=== PATIENT | female | born 1965 | race Caucasian/White ===

== ENCOUNTER 2017-06-15 15:19 | Emergency (ER) | payer OTHER ==
--- NOTE | 2017-06-15 15:59 | EDPHY ---
H & P Time Seen by Provider: 06/15/17 15:58 HPI/ROS: Chief complaint. Abdominal pain HPI. 52-year-old female with fever and chills that began yesterday. She has mid abdominal cramping that is worse on the right. She has no upper respiratory symptoms or sore throat. Denies chest discomfort, shortness of breath, cough. Denies urinary symptoms. No history of previous abdominal surgery or symptoms. Nausea but no vomiting or diarrhea ROS Constitutional. Fever and chills Eyes. no problems with vision ENT. no sore throat, no nasal drainage Cardiovascular. no chest pain Respiratory. no shortness of breath, no cough Abdominal. Right-sided abdominal pain . no problems urinating MS. no calf pain/swelling, no neck/back pain, no joint pain Skin. no rash Lymph. no swollen glands Neuro. no headache, no dizziness, no difficulty walking or with speech Past Medical/Surgical History: Healthy Social History: , nonsmoker, no alcohol Smoking Status: Never smoked Physical Exam: General Appearance: Alert pleasant well-developed female mild distress vital signs significant for heart rate 115 Eyes: Pupils equal and round no pallor or injection. ENT, Mouth: Mucous membranes are moist. Respiratory: There are no retractions, lungs are clear to auscultation. Cardiovascular: Regular rate and rhythm. Gastrointestinal: Abdomen is soft with tenderness in the right mid quadrant. Normal bowel sounds. No masses Neurological: Awake and alert, sensory and motor exams grossly normal. Skin: Warm and dry, no rashes. Musculoskeletal: Neck is supple nontender. Extremities symmetrical, full range of motion. Psychiatric: Patient is oriented X 3, there is no agitation. Constitutional: Initial Vital Signs Temperature (C) 36.9 C 06/15/17 15:23 Heart Rate 115 H 06/15/17 15:23 Respiratory Rate 16 06/15/17 15:23 Blood Pressure 140/90 H 06/15/17 15:23 O2 Sat (%) 96 06/15/17 15:23 O2 Delivery Mode Room Air Allergies/Adverse Reactions: No Known Allergies Allergy (Unverified 09/15/14 05:15) Home Medications: Medication Instructions Recorded oxyCODONE/APAP 5/325 [Percocet 1 - 2 tab PO Q4-6PRN PRN #14 tab 09/15/14 5/325 (RX)] Ciprofloxacin HCl [Cipro] 750 mg PO BID #14 tablet 06/15/17 Metronidazole 500 mg PO QID #28 tablet 06/15/17 Medical Decision Making - Diagnostics Imaging Results: CT abdomen and pelvis with IV contrast shows sigmoid diverticulitis with possible small micro perforation. Otherwise no free air. There is inflammation around the diverticulitis. There is an incidental finding of a 1.3 cm right renal cyst that will require follow-up ultrasound for further evaluation. CT is reviewed by me and then discussed with Dr. Armstrong Procedures: IV normal saline IV Invanz in the emergency department ED Course/Re-evaluation: Re-evaluation 5:45 p.m.. Patient is stable. The patient and I discussed imaging and lab results. We discussed treatment plan including criteria for return importance of follow-up and further evaluation. She expresses understanding and agreement. I offered admission however she would like to be treated as an outpatient. She is encouraged to return for worsening symptoms Differential Diagnosis: I considered appendicitis, diverticulitis, urinary tract infection, bowel obstruction - Data Points Laboratory Results: Laboratory Results 06/15/17 16:10 06/15/17 16:10 06/15/17 06/15/17 06/15/17 16:10 16:10 16:10 WBC 16.70 10^3/uL H 10^3/uL (3.80-9.50) RBC 5.35 10^6/uL H 10^6/uL (4.18-5.33) Hgb 14.8 g/dL g/dL (12.6-16.3) Hct 44.4 % % (38.0-47.0) MCV 83.0 fL fL (81.5-99.8) MCH 27.7 pg L pg (27.9-34.1) MCHC 33.3 g/dL g/dL (32.4-36.7) RDW 14.1 % % (11.5-15.2) Plt Count 269 10^3/uL 10^3/uL (150-400) MPV 9.0 fL fL (8.7-11.7) Neut % (Auto) 84.4 % H % (39.3-74.2) Lymph % (Auto) 8.1 % L % (15.0-45.0) [place] % (Auto) 6.0 % % (4.5-13.0) Eos % (Auto) 0.8 % % (0.6-7.6) Baso % (Auto) 0.2 % L % (0.3-1.7) Nucleat RBC Rel Count 0.0 % % (0.0-0.2) Absolute Neuts (auto) 14.10 10^3/uL H 10^3/uL (1.70-6.50) Absolute Lymphs (auto) 1.35 10^3/uL 10^3/uL (1.00-3.00) Absolute Monos (auto) 1.01 10^3/uL H 10^3/uL (0.30-0.80) Absolute Eos (auto) 0.13 10^3/uL 10^3/uL (0.03-0.40) Absolute Basos (auto) 0.03 10^3/uL 10^3/uL (0.02-0.10) Absolute Nucleated RBC 0.00 10^3/uL 10^3/uL (0-0.01) Immature Gran % 0.5 % % (0.0-1.1) Immature Gran # 0.08 10^3/uL 10^3/uL (0.00-0.10) Sodium 142 mEq/L mEq/L (134-144) Potassium 3.9 mEq/L mEq/L (3.5-5.2) Chloride 107 mEq/L mEq/L (97-110) Carbon Dioxide 19 mEq/l L mEq/l (22-31) Anion Gap 16 mEq/L mEq/L (8-16) BUN 14 mg/dL mg/dL (7-23) Creatinine 0.8 mg/dL mg/dL (0.6-1.0) Estimated GFR > 60 Glucose 96 mg/dL mg/dL (70-100) Calcium 9.7 mg/dL mg/dL (8.5-10.4) Urine Color YELLOW Urine Appearance CLEAR Urine pH 5.0 (5.0-7.5) Ur Specific [place] 1.023 (1.002-1.030) Urine Protein NEGATIVE (NEGATIVE) Urine Ketones 1+ H (NEGATIVE) Urine Blood NEGATIVE (NEGATIVE) Urine Nitrate NEGATIVE (NEGATIVE) Urine Bilirubin NEGATIVE (NEGATIVE) Urine Urobilinogen NEGATIVE EU EU (0.2-1.0) Ur Leukocyte Esterase NEGATIVE (NEGATIVE) Urine Glucose NEGATIVE (NEGATIVE) Medications Given: Discontinued Medications Sodium Chloride (Ns) 1,000 mls @ 0 mls/hr IV EDNOW ONE; Wide Open PRN Reason: Protocol Stop: 06/15/17 16:29 Last Admin: 06/15/17 16:39 Dose: 1,000 mls Departure - Departure Disposition: Home, Routine, Self-Care Clinical Impression: Sigmoid diverticulitis Condition: Good Instructions: Diverticulitis Diet (ED), Diverticulitis (ED) Additional Instructions: Metronidazole using 1 pill 4 times daily. Cipro 1 pill twice daily for 1 week. Tylenol or ibuprofen as needed for fever and chills. Return for worsening pain , fever, vomiting. Recheck in [address] Avila. You have an incidental finding of a 1.3 cm cyst on the right kidney that requires a follow-up ultrasound for further evaluation. This can be arranged for you by your regular physician. Referrals: Ana Jackson PA [Primary Care Provider] - 2-3 days without fail Prescriptions: Ciprofloxacin HCl [Cipro] 750 mg PO BID #14 tablet Metronidazole 500 mg PO QID #28 tablet
[2017-06-15] MEDS ORDERED: NS 1,000 ML IV ONE (16:28)
[2017-06-15 16:30] LABS: % IMMATURE GRANULYOCYTES 0.5 % (0.0-1.1); ABSOLUTE IMMATURE GRANULOCYTES 0.08 10^3/uL (0.00-0.10); ADD DIFF? NO; ADD MORPH? NO; ADD SCAN? NO; ATYPICAL LYMPHOCYTE FLAG 0 (0-99); FRAGMENT RBC FLAG 0 (0-99); HEMATOCRIT 44.4 % (38.0-47.0); HEMOGLOBIN 14.8 g/dL (12.6-16.3); LEFT SHIFT FLG 0 (0-99); LIPEMIA HEMOLYSIS FLAG 80 (0-99); MEAN CELL HEMOGLOBIN 27.7 pg (27.9-34.1); MEAN CELL HEMOGLOBIN CONCENTR. 33.3 g/dL (32.4-36.7); PLATELET CLUMPS FLAG 10 (0-99); PLATELET COUNT 269 10^3/uL (150-400); RED BLOOD CELL COUNT 5.35 10^6/uL (4.18-5.33); RED CELL DISTRIBUTION WIDTH 14.1 % (11.5-15.2)
[2017-06-15 16:39] LABS: COLOR YELLOW; LEUKOCYTE ESTERASE,URINE NEGATIVE (NEGATIVE); NITRITE,URINE NEGATIVE (NEGATIVE)
[2017-06-15 16:40] VITALS: RESP 20
[2017-06-15 17:03] LABS: ANION GAP 16 mEq/L (8-16); CALCIUM 9.7 mg/dL (8.5-10.4); CARBON DIOXIDE 19 mEq/l (22-31); CHLORIDE 107 mEq/L (97-110); CREATININE 0.8 mg/dL (0.6-1.0); GLOMERULAR FILTRATION RATE > 60; GLUCOSE 96 mg/dL (70-100); POTASSIUM 3.9 mEq/L (3.5-5.2); SODIUM 142 mEq/L (134-144)
[2017-06-15] MEDS ORDERED: IOPAMIDOL (ISOVUE-300) 100 ML BTL ONE (17:06)
[2017-06-15] MEDS ORDERED: ERTAPENEM 1 GM in NS 100 ML IV ONE (17:44)
[2017-06-15] MEDS ORDERED: ONDANSETRON 4 MG/2 ML VIAL ONE (18:42)
[2017-06-15] MEDS ORDERED: ONDANSETRON 4 MG/2 ML VIAL IVP ONE (18:46)
[2017-06-15] MEDS: ONDANSETRON DISINTEGRATING 4 MG TAB PO ONE ×2 (18:47→18:48)
[2017-06-15 19:06] VITALS: BP 125/85; PULSE 96; TEMP 98.6; O2SAT 95
== END 2017-06-15 19:06 | disposition home or self-care (01) ==
DX: K57.32 Diverticulitis of large intestine without perforation or abscess without bleeding (principal); E86.9 Volume depletion, unspecified
CPT/HCPCS: 96365; J1335; J2405; Q9967